=== PATIENT | male | born 1980 | race African-American/Black ===

== ENCOUNTER 2018-09-29 13:53 | Emergency (ER) | payer OTHER ==
[~2018-09-29] VITALS: Ht 188 cm; Wt 102.1 kg
[2018-09-29 13:57] VITALS: BP 128/72
--- NOTE | 2018-09-29 14:02 | NUR ---
PT TAKEN TO BED 3 VIA WHEELCHAIR
[2018-09-29 14:10] VITALS: BP 128/72
--- NOTE | 2018-09-29 14:10 | NUR ---
PT IS A 38 Y/O MALE BIB W/C WHO PRESENTS TO THE ED FOR R KNEE PAIN. PT DENIES ANY TX/INJURY BUT REPORTS MOVING IN A TWISTING MOTION. PT REPORTS 10/10 ACHING R KNEE PAIN THAT DOES NOT RADIATE. NO OBVIOUS TRAUMA/DEFORMITY. CMS INTACT. PT DENIES CP, SOB, N/V/D. PT AWAKE AND ALERT, RR EVEN/UNLABORED. PT REPOSITIONED FOR COMFORT, BED IN LOWEST POSITION. ER MD DR. HIGGINBOTHAM NOTIFIED. WILL CONTINUE TO MONITOR.
[2018-09-29] MEDS ORDERED: KETOROLAC 60 MG/2 ML VIAL IM ONE (14:30)
--- NOTE | 2018-09-29 15:15 | NUR ---
Patient discharged with v/s stable. Written and verbal after care instructions given and explained. Patient alert, oriented and verbalized understanding of instructions. Ambulatory with steady gait w crutches. All questions addressed prior to discharge. ID band removed. Patient advised to follow up with PMD. Rx of MOTRIN 800MG given. Patient educated on indication of medication including possible reaction and side effects. Opportunity to ask questions provided and answered.
== END 2018-09-29 15:15 | disposition home or self-care (01) ==
LOC: MED 13:53
DX: M70.51 Other bursitis of knee, right knee (principal); M25.551 Pain in right hip
CPT/HCPCS: 73502; 73562; 96372; 99283; J1885; Q0092